=== PATIENT | female | born 1985 | race Caucasian/White ===

== ENCOUNTER 2017-02-23 08:41 | Emergency (ER) | payer MEDICAID, OTHER ==
[~2017-02-23] VITALS: Ht 165.1 cm; Wt 75.0 kg
[~2017-02-23 08:41] MED LIST: DOXY100C PO; IBUP-232 PO
[2017-02-23 08:42] VITALS: BP 123/83; PULSE 91; RESP 16; TEMP 98.6; O2SAT 98
[2017-02-23] MEDS ORDERED: CETI1TAB21 PO (09:26)
[2017-02-23 09:27] VITALS: BP 121/78; PULSE 72; RESP 18; TEMP 98.1; O2SAT 100
[2017-02-23] MEDS ORDERED: SODIUM CHLOR 0.9% 1000 ML INJ 1,000 ML IV ONE (09:53)
[2017-02-23] MEDS ORDERED: PROCHLORPERAZINE INJ 10 MG/2 ML VIAL IVP ONE (10:00)
[2017-02-23] MEDS ORDERED: diphenhydrAMINE HCL 50 MG/ML VIAL IVP ONE (10:00)
[2017-02-23] MEDS ORDERED: SODIUM CHLORIDE 0.9% FLUSH 10 ML FLUSH IVF PRN (10:00)
[2017-02-23] MEDS ORDERED: KETOROLAC TROMETHAMINE 30 MG/ML (IVP) VIAL IVP ONE (10:00)
[2017-02-23 10:15] VITALS: BP 121/78; PULSE 69; RESP 18; TEMP 98.8; O2SAT 100
--- NOTE | 2017-02-23 11:31 | PD ---
HPI Chief Complaint: Headache Time Seen by Provider: 09:42 Travel History International Travel<30 days: No Contact w/Intl Traveler<30days: No Traveled to known affect area: No History of Present Illness HPI So 31-year-old woman who presents to the emergency department complaining of pain in her head for the past week or so. She saw primary doctor, your physician, she's had a CT scan that was negative, she was treated with Imitrex in urgent care at which made her feel funny which is why she went to the ER to begin with. CT scan was a couple days ago. She saw her primary doctor yesterday and was given a prescription for doxycycline and Zyrtec. She states despite this she still having pain in her head. She describes some occasional blurry vision when the pain it's really bad. She also describes some nausea. No vomiting. No other neurologic symptoms. No other complaints. History Past Medical History Narrative Medical Stomach issues Tetanus Vaccination: Unknown Influenza Vaccination: No LMP: 02/20/17 Social History Alcohol Use: No Tobacco Use: Yes Allergies-Medications (Allergen,Severity, Reaction): Coded Allergies: Penicillins (Verified Allergy, Severe, Hives, 02/23/17) Reported Meds & Prescriptions Reported Meds & Active Scripts Active Doxycycline Hyclate 100 Mg Cap 100 Mg PO BID Ibuprofen 600 Mg Tab 600 Mg PO Q8H PRN 10 Days Reported Cetirizine-Pseudoephedrine 12 HR 5-120 Mg Tab 1 Tab PO BID Review of Systems Except as stated in HPI: all other systems reviewed are Neg Physical Exam Narrative GENERAL: 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 SKIN: Focused skin assessment warm/dry. HEAD: Atraumatic. Normocephalic. EYES: Pupils equal and round. No scleral icterus. No injection or drainage. Funduscopic exam without any papilledema. ENT: No nasal bleeding or discharge. Mucous membranes pink and moist. NECK: Trachea midline. No JVD. CARDIOVASCULAR: Regular rate and rhythm. No murmur appreciated. RESPIRATORY: No accessory muscle use. Clear to auscultation. Breath sounds equal bilaterally. GASTROINTESTINAL: Abdomen soft, non-tender, nondistended. Hepatic and splenic margins not palpable. MUSCULOSKELETAL: No obvious deformities. No clubbing. No cyanosis. No edema. NEUROLOGICAL: Awake and alert. No obvious cranial nerve deficits. Motor grossly within normal limits. Normal speech. PSYCHIATRIC: Appropriate mood and affect; insight and judgment normal. Data Data Last Documented VS Vital Signs Date Time Temp Pulse Resp B/P (MAP) Pulse Ox O2 Delivery O2 Flow Rate FiO2 02/23/17 09:27 98.1 72 18 121/78 (92) 100 Room Air Orders Orders Ecg Monitoring (02/23/17 09:53) Iv Access Insert/Monitor (02/23/17 09:53) Oximetry (02/23/17 09:53) Sodium Chloride 0.9% Flush (Ns Flush) (02/23/17 10:00) Prochlorperazine Inj (Compazine Inj) (02/23/17 10:00) Diphenhydramine Inj (Benadryl Inj) (02/23/17 10:00) Sodium Chlor 0.9% 1000 Ml Inj (Ns 1000 M (02/23/17 09:53) Ketorolac Inj (Toradol Inj) (02/23/17 10:00) MDM Medical Decision Making Medical Screen Exam Complete: Yes Emergency Medical Condition: Yes Differential Diagnosis Migraine, venous thrombosis, pseudotumor, malignancy, anxiety, other Narrative Course 29-year-old woman with headache symptoms. She is under a lot of stress recently. She seen a doctor one time in the past for headache and was related to stress. is sick in the hospital now. She has some occasional blurry vision and nausea. No other symptoms. No palpable edema or other evidence of pseudotumor. Much improved after migraine cocktail. Recommend supportive treatment, follow-up with neurology if needed. Referrals: Jeanine Blank MD call for appointment Additional Instructions: Follow-up with a neurologist if you're not feeling well in the next week or so. Return to the emergency department for any new or worsening symptoms. Med/Other Pt SpecificInfo: No Change to Meds Disposition: 01 DISCHARGE HOME Condition: Stable Jose Powell MD Feb 23, 2017 11:31
[2017-02-23 11:33] VITALS: BP 107/70; PULSE 81; RESP 18; O2SAT 98
--- NOTE | 2017-02-23 11:43 | PD ---
Data Data Last Documented VS Vital Signs Date Time Temp Pulse Resp B/P (MAP) Pulse Ox O2 Delivery O2 Flow Rate FiO2 02/23/17 11:33 81 18 107/70 (82) 98 Room Air 02/23/17 10:15 98.8 Orders Orders Ecg Monitoring (02/23/17 09:53) Iv Access Insert/Monitor (02/23/17 09:53) Oximetry (02/23/17 09:53) Sodium Chloride 0.9% Flush (Ns Flush) (02/23/17 10:00) Prochlorperazine Inj (Compazine Inj) (02/23/17 10:00) Diphenhydramine Inj (Benadryl Inj) (02/23/17 10:00) Sodium Chlor 0.9% 1000 Ml Inj (Ns 1000 M (02/23/17 09:53) Ketorolac Inj (Toradol Inj) (02/23/17 10:00) Ed Discharge Order (02/23/17 11:31) MDM Supervised Visit with KELLEN: No Diagnosis Primary Impression: Headache Referrals: Jeanine Blank MD call for appointment Patient Instructions: General Instructions, Tension Headache (ED) Departure Forms: Tests/Procedures Additional Instruction: Follow-up with a neurologist if you're not feeling well in the next week or so. Return to the emergency department for any new or worsening symptoms. Disposition: 01 DISCHARGE HOME Condition: Stable Jose Powell MD Feb 23, 2017 11:43
[2017-02-23 11:57] VITALS: BP 107/70
[2017-02-28] MEDS ORDERED: TYLE325T PO (10:21)
[2017-02-28] MEDS ORDERED: AMIT10TA6 PO (10:51)
== END 2017-02-23 11:58 | disposition home or self-care (01) ==
LOC: NEPD 08:41
DX: R51 Headache (principal); F17.200 Nicotine dependence, unspecified, uncomplicated
CPT/HCPCS: 96361; 96374; 96375; 99284; J0780; J1200; J1885; J7030